=== PATIENT | female | born 1995 | race Caucasian/White ===

== ENCOUNTER 2016-12-16 09:01 | Emergency (ER) | payer OTHER ==
[~2016-12-16] VITALS: Ht 162.6 cm; Wt 66.5 kg
[2016-12-16 09:03] VITALS: BP 114/76
== END 2016-12-16 10:13 | disposition home or self-care (01) ==
LOC: ED 10:00
DX: J01.01 Acute recurrent maxillary sinusitis (principal); J45.909 Unspecified asthma, uncomplicated
CPT/HCPCS: 99283

== ENCOUNTER 2017-05-21 11:30 | Emergency (ER) | payer OTHER ==
[~2017-05-21] VITALS: Ht 162.6 cm; Wt 65.9 kg
[2017-05-21 13:17] LABS: HEMATOCRIT 42.8 % (34.6-47.8); HEMOGLOBIN 14.3 g/dL (11.7-16.4); WHITE BLOOD COUNT 10.1 x10^3/uL (3.4-10)
[2017-05-21 13:29] LABS: ASPARTATE AMINO TRANSFERASE 21 U/L (15-37); BLOOD UREA NITROGEN 7 mg/dL (7-18)
[2017-05-21 15:32] VITALS: BP 111/71
== END 2017-05-21 15:34 | disposition home or self-care (01) ==
LOC: ED 13:17
DX: N92.0 Excessive and frequent menstruation with regular cycle (principal); N92.1 Excessive and frequent menstruation with irregular cycle
CPT/HCPCS: 36415; 76830; 80053; 84703; 85025; 85610; 99285

== ENCOUNTER 2017-07-03 08:50 | Emergency (ER) | payer OTHER ==
[~2017-07-03] VITALS: Ht 162.6 cm; Wt 65.3 kg
[2017-07-03 10:51] LABS: PATH.CAST-FLAG NOT PRESENT; SPERM-FLAG NOT PRESENT; SRC-FLAG NOT PRESENT; XTAL-FLAG NOT PRESENT; YLC-FLAG NOT PRESENT
[2017-07-03 10:55] LABS: HCG UR LOT HCG7030192
[2017-07-03 11:03] LABS: HCG UR OBC PASS
[2017-07-03 12:17] VITALS: BP 118/69
== END 2017-07-03 12:19 | disposition home or self-care (01) ==
LOC: ED 10:45
DX: N30.01 Acute cystitis with hematuria (principal); J45.909 Unspecified asthma, uncomplicated
CPT/HCPCS: 81001; 81025; 87077; 87086; 87186; 99284

== ENCOUNTER 2017-08-17 13:16 | Emergency (ER) | payer OTHER ==
[~2017-08-17] VITALS: Ht 162.6 cm; Wt 65.4 kg
[2017-08-17 13:26] VITALS: BP 112/73
== END 2017-08-17 14:06 | disposition home or self-care (01) ==
LOC: ED 13:55
DX: H66.91 Otitis media, unspecified, right ear (principal); H60.501 Unspecified acute noninfective otitis externa, right ear
CPT/HCPCS: 99283

== ENCOUNTER 2018-05-11 09:57 | Emergency (ER) | payer OTHER ==
[~2018-05-11] VITALS: Ht 162.6 cm; Wt 62.6 kg
[2018-05-11 10:09] VITALS: BP 112/63
== END 2018-05-11 11:07 | disposition home or self-care (01) ==
LOC: ED 11:01
DX: S53.402A Unspecified sprain of left elbow, initial encounter (principal); S60.222A Contusion of left hand, initial encounter; F17.200 Nicotine dependence, unspecified, uncomplicated; W01.0XXA Fall on same level from slipping, tripping and stumbling without subsequent striking against object, initial encounter; Y93.51 Activity, roller skating (inline) and skateboarding; Y92.410 Unspecified street and highway as the place of occurrence of the external cause; Y99.8 Other external cause status
CPT/HCPCS: 99284

== ENCOUNTER 2020-10-21 02:52 | Emergency (ER) | payer OTHER ==
--- NOTE | 2020-10-21 03:14 | NUR ---
PARI MUTUAL TICKET CHECKER REQUESTING MORE TIME WITH PATIENT PRIVATELY TO SPEAK WITH HER. THIS WAS GRANTED. PATIENT CHANGED INTO GOWN AND WARM BLANKETS PROVIDED. ALL PERSONAL BELONGINGS PLACED IN ER LOCKED CABINET. PURSE, PANTS, SHOES, SHIRTS, CELL PHONE. DR. VILLALOBOS AWARE OF DELAY IN VS AND LABS DUE TO PO REQUESTING MORE TIME
[2020-10-21 03:46] LABS: BASOPHILS % (AUTO) 0 % (0-1); EOSINOPHILS % (AUTO) 2 % (1-7); LYMPHOCYTES % (AUTO) 28 % (22-44); MEAN CORPUSCULAR HEMOGLOBIN 30.9 pg (27.0-34.8); MEAN CORPUSCULAR HGB CONC 34.2 g/dL (32.4-35.8); MEAN PLATELET VOLUME 7.4 fL (7.4-10.4); MONOCYTES % (AUTO) 6 % (2-9); NEUTROPHILS % (AUTO) 64 % (42-75); PLATELET COUNT 419 x10^3/uL (130-400); RED BLOOD COUNT 4.92 x10^6/uL (3.82-5.3); RED CELL DISTRIBUTION WIDTH 13.1 % (9.6-15.2)
[2020-10-21 03:49] LABS: MD NO
[2020-10-21 03:53] LABS: ALANINE AMINOTRANSFERASE 32 U/L (12-78); ALBUMIN 4.1 g/dL (3.4-5.0); ANION GAP 13 mmol/L (5-15); CHLORIDE 101 mmol/L (98-107); CREATININE 0.96 mg/dL (0.55-1.02); SALICYLATE LEVEL 1.8 mg/dL (2.8-20.0)
[2020-10-21] MEDS ORDERED: BUPR-173 PO (03:54)
--- NOTE | 2020-10-21 03:56 | NUR ---
ATTEMPTED TO GET URINE SAMPLE. PATIENT WALKED TO BATHROOM AND DID NOT NOTIFY STAFF BEFORE DOING SO. I DID EDUCATE PATIENT ON WHAT SHE NEEDED TO DO WITH CALL LEMUS IF SHE NEEDED TO USE BATHROOM. DID NOT FOLLOW REQUEST. SAFETY MAINTAINED. 1:1 IN PATIENT VIEW. WILL CONTINUE TO MONITOR
[2020-10-21 03:58] LABS: ALKALINE PHOSPHATASE 84 U/L (45-117); BILIRUBIN,TOTAL 0.9 mg/dL (0.2-1.0); TOTAL PROTEIN 8.2 g/dL (6.4-8.2)
[2020-10-21] MEDS ORDERED: ACETAMINOPHEN 325 MG TABLET ONE (04:45)
--- NOTE | 2020-10-21 04:54 | NUR ---
Upfitter went into patient room to turn off lights. Patient request something for a headache. Patient was wondering what her plan of care was going to be. Upfitter spoke to MD who states that once her ETOH level is below .1 she would be doing a telepsych visit. Patient was concerned that she would miss her virtural therapist appt at 0845. Upfitter OK it with the MD that as long as it doesn't interfere with her telepsych visit that she is allowed her phone for that appt. Patient stated that she is OK with that plan. Medicated per MAR. Patient resting at this time. Sitter present
[2020-10-21] MEDS ORDERED: ACETAMINOPHEN 325 MG TABLET PO ONE (05:00)
--- NOTE | 2020-10-21 05:31 | NUR ---
PATIENT RESTING IN BED CALMLY. LIGHTS DIMMED PER PATIENT REQUEST. 1:1 IN VIEW OF PATIENT. SAFETY MAINTAINED. WILL CONTINUE TO MONITOR
--- NOTE | 2020-10-21 05:59 | NUR ---
patient sleeping. safety maintained. will continue to monitor.
--- NOTE | 2020-10-21 07:10 | NUR ---
report given to Ciera ADAMS
--- NOTE | 2020-10-21 07:18 | NUR ---
PT UP TO BATHROOM, BREATHALIZER 0.087.
--- NOTE | 2020-10-21 07:25 | NUR ---
Pt states she missed the cup, no urine sample received, VS checked.
--- NOTE | 2020-10-21 08:52 | NUR ---
Pt allowed to use cell phone to call father and brother. pt calm and cooperative. sitter in direct visualization.
--- NOTE | 2020-10-21 09:31 | NUR ---
pt león ESPARZA. plan of care disucssed. sitter outside of room.
--- NOTE | 2020-10-21 10:31 | NUR ---
Pt calm, cooperative. sitter outside of room. pt ate some oranges. pt states if discharged she can have her brother pick her up, she lives with him in [place]. awaiting psychiatry evaluation.
--- NOTE | 2020-10-21 11:15 | NUR ---
Patient complains of anxiety. Pt states takes hydroxyzine for anxiety. VS checked. Ching Riggins NP aware and verbal order for hydroxyzine 50mg now.
[2020-10-21] MEDS ORDERED: hydrOXyzine 50MG TABLET ONE (11:26)
--- NOTE | 2020-10-21 11:31 | NUR ---
Ching ASSISTANT CHILD CARE TEACHER at bedside. evaulation.
--- NOTE | 2020-10-21 12:10 | NUR ---
Ching CARGO MATE still at bedside.
[2020-10-21] MEDS ORDERED: BUPROPION 100 MG TABLET PO ONE (12:30)
[2020-10-21 13:05] VITALS: BP 108/62
--- NOTE | 2020-10-21 13:10 | NUR ---
Herve called, requested wellbutrin 100mg PO.
--- NOTE | 2020-10-21 13:29 | NUR ---
Pt left with brother. pt understands to keep follow up appointment and establish with psychiatrist.
== END 2020-10-21 13:33 | disposition home or self-care (01) ==
LOC: ED 03:22
DX: F33.9 Major depressive disorder, recurrent, unspecified (principal); F10.120 Alcohol abuse with intoxication, uncomplicated; G89.29 Other chronic pain; J45.909 Unspecified asthma, uncomplicated; F41.1 Generalized anxiety disorder; F17.200 Nicotine dependence, unspecified, uncomplicated; Z88.4 Allergy status to anesthetic agent; Y90.0 Blood alcohol level of less than 20 mg/100 ml
CPT/HCPCS: 36415; 80053; 80299; 80320; 80329; 84703; 85025; 99285; Q0177; G0480